=== PATIENT | female | born 1950 | race Two or more races ===

== ENCOUNTER 2016-10-17 08:36 | Day surgery (SDC) | payer MEDICARE, MEDICAID ==
[~2016-10-17 08:36] MED LIST: FENTANYL 250 MCG/5 ML AMP IV PRN; LACTATED RINGERS 1,000 ML IV SCH; LIDOCAINE Viscous 2% 15 ML UDCUP PO PRN; MIDAZOLAM HCL 5 MG/5 ML VIAL IV PRN
[2016-10-17] MEDS ORDERED: LACTATED RINGERS 0 ML ONE (08:54)
[2016-10-17] MEDS ORDERED: IV START KIT ONE (08:54)
[2016-10-17] MEDS ORDERED: SODIUM CHLORIDE 0.9% 1,000 ML ONE (09:10)
[2016-10-17] MEDS ORDERED: LIDOCAINE Viscous 2% 15 ML UDCUP ONE (09:25)
[2016-10-17] MEDS ORDERED: FENTANYL 100 MCG/2 ML VIAL ONE (09:25)
[2016-10-17] MEDS ORDERED: MIDAZOLAM HCL 5 MG/5 ML VIAL ONE (09:25)
[2016-10-17] MEDS ORDERED: SODIUM CHLORIDE 0.9% 1,000 ML IV SCH (09:45)
[2016-10-17 14:37] LABS: HELICOBACTER PYLORII DETECTION NEGATIVE (NEGATIVE)
--- NOTE | 2016-10-19 10:22 | SURGPATH ---
[facility] [address] [place] [id number] Patient Name: SARAH GOULD MR#: [id number] : 1950 Gender: F Specimen #: [id number] Collected: 10/17/2016 Received: 10/18/2016 Reported: 10/19/2016 Submitting Phys: FIDEL LAZO Copy To Phys: [facility] - HIM GIGENA, KELSEY Clinical History / Pre-Operative Diagnosis: Epigastric pain with heartburn; nodule; dysphagia; rule out Giardia, celiac sprue and gastritis Specimen Source / Surgical Procedure Performed: #1-duodenal biopsy; #2-antral biopsy Interpretation: 1. DUODENUM, BIOPSIES: - CHANGES SUGGESTING MILD PEPTIC DUODENITIS - CLINICAL CORRELATION SUGGESTED 2. GASTRIC ANTRUM, BIOPSIES: - NO PATHOLOGIC ABNORMALITY Electronically Signed Out Jesus Jin M.D. Gross Description: #1 The specimen is received in a formalin filled container labeled with the patient's name and "duodenal biopsy". A single cain biopsy is 0.5 cm. Totally embedded in cassette #1. #2 The specimen is received in a formalin filled container labeled with the patient's name and "antral biopsy". A single cain biopsy is 0.5 cm. Totally embedded in cassette #2. Tyson Paulson PFreda Microscopic Description: Microscopic performed. 1: 61012 2: 45614 K29.80
== END 2016-10-17 10:35 | disposition home or self-care (01) ==
LOC: SDC 08:36
PROVIDERS: ATTEND Internal Medicine Gastroenterology
PROC: 0DB68ZX Excision of Stomach, Via Natural or Artificial Opening Endoscopic, Diagnostic (ICD-10-PCS; principal; 2016-10-17)
PROC: 0DB98ZX Excision of Duodenum, Via Natural or Artificial Opening Endoscopic, Diagnostic (ICD-10-PCS; 2016-10-17)
DX: K29.70 Gastritis, unspecified, without bleeding (principal); K29.80 Duodenitis without bleeding; E11.9 Type 2 diabetes mellitus without complications; E78.5 Hyperlipidemia, unspecified; I10 Essential (primary) hypertension; M79.1 Myalgia; Z79.4 Long term (current) use of insulin
CPT/HCPCS: 87081; 43239; J3010; J2250; A9270; J7030